=== PATIENT | male | born 1980 | race Asian ===

== ENCOUNTER 2020-08-04 16:08 | Emergency (ER) | payer OTHER ==
[2020-08-04 16:15] VITALS: BP 120/77; PULSE 71; TEMP 98.6; BMI 29.7
--- OUTSIDE RECORDS SUMMARY | 2020-08-04 16:31 | XMS ---
:1980 [facility] Providers Name Role Phone Favio Ocampo Unavailable [phone] Reva Stevens Unavailable [phone] Aramis Stevens Unavailable [phone] Aramis Stevens Unavailable [phone] REECE Unavailable Unavailable ZOEY Malcolm Unavailable Unavailable Smith, W Unavailable Unavailable Smith, W Unavailable Unavailable Smith, W Unavailable Unavailable Smith, W Unavailable Unavailable ZUNASSIGNED Unavailable Unavailable ELYSE Self Unavailable Unavailable ZUNASSIGNED@, Unavailable Unavailable Re-disclosure Warning The records that you are about to access may contain information from federally- assisted alcohol or drug abuse programs. If such information is present, then the following federally mandated warning applies: This information has been disclosed to you from records protected by federal confidentiality rules (42 CFR part 2). The federal rules prohibit you from making any further disclosure of this information unless further disclosure is expressly permitted by the written consent of the person to whom it pertains or as otherwise permitted by 42 CFR part 2. A general authorization for the release of medical or other information is NOT sufficient for this purpose. The Federal rules restrict any use of the information to criminally investigate or prosecute any alcohol or drug abuse patient.The records that you are about to access may contain highly sensitive health information, the redisclosure of which is protected by Article 27-F of the [facility] Public Health law. If you continue you may haveaccess to information: Regarding HIV / AIDS; Provided by facilities licensed or operated by the [facility] Office of Mental Health; or Provided by the [facility] Office for People With Developmental Disabilities. If such information is present, then the following [facility] mandated warning applies: This information has been disclosed to you from confidential records which are protected by state law. State law prohibits you from making any further disclosure of this information without the specific written consent of the person to whom it pertains, or as otherwise permitted by law. Any unauthorized further disclosure in violation of state law may result in a fine or retirement sentence or both. A general authorization for the release of medical or other information is NOT sufficient authorization for further disclosure. Allergies and Adverse Reactions Type Description Substance Reaction Status Data Source(s ) Propensity to Propensity to Propensity to NEXTG EN ([facility] adverse reactions adverse reactions adverse reactions [facility] Medical (disorder) (disorder) (disorder) Center) Encounters Encounter Providers Location Date Indications Data Source(s ) Outpatient Attender: 08/19/2020 [facility] 10:15:00 AM Medic [facility] r: EDT ZUNASSIGNEDReferre r: [id number] ZUNASSIGNED@, Outpatient Admitter: [id number] 08/19/2020 [facility] ZUNASSIGNED@,Refer 12:00:00 AM [facility] rer: [id number] EDT ZUNASSIGNED@, Outpatient 07/24/2020 [facility] 11:58:00 [facility] EDT Outpatient Attender: 07/24/2020 [facility] ZEIGNEDAdmitte 09:04:00 AM [facility] r: EDT ZUNASSIGNEDReferre r: [id number] ZUNASSIGNED@, Outpatient Attender: Levon Dotson 07/24/2020 [facility] MoserAdmitter: 09:02:00 AM Medical C enter Levon EDT Sydneeeferrer: Lveon Mtz Attender: Favio 07/24/2020 [facility] ( [facility] 09:02:00 AM [facility] EDT - Center) 07/24/2020 09:02:00 AM EDT Outpatient Admitter: [id number] 07/24/2020 [facility] ZUNASSIGNED@,Refer 12:00:00 AM Medic [facility] rer: [id number] EDT ZUNASSIGNED@, Outpatient Admitter: CUCO Dotson 09/16/2019 [facility] Brandan teresa Malcolm 01:57:00 PM Medical Ce nter EST Outpatient Attender: CUCO Dotson 09/16/2019 [facility] [place] 11:19:00 AM Medical Cent er ESTHERdmitter: CUCO [place] 09/16/2019 Jamesrer: CUCO 01:27:00 PM ZOEY Malcolm EST Attender: Favio [facility] 11:19:00 AM May[facility] EST - Center) 09/16/2019 11:19:00 AM EST Outpatient Attender: MEGHANN Dotson 09/06/2019 [facility] LIZYdmitter: 08:39:00 AM Medical Center MEGHANN FONSECALReferrer: MEGHANN REECE Outpatient Attender: REVA Dotson 07/17/2019 [facility] ELYSE 01:40:00 PM Medical Cent er REVA Sanchezmitter: EDT REVA ARDON MReferrer: MEGHANN REECE OutpatientOFFICE/O Attender: [facility] 07/17/2019 [facility] ([facility] VISIT, Elyse 01:40:00 PM [facility] EDT - [place]) 07/17/2019 01:40:00 PM EDT Insurance Providers Payer name Policy type Policy ID Covered Covered libertarian's Policy P mauri / Coverage libertarian ID relationship to Smith Inf ormation type smith MVP/HHP O [id number] 01 [id number] MVP/HHP [id number] self [id number] MVP ESSENTIAL [id number] SP [id number] PLAN 3 4 [place] [id number] [place] [id number] HMO MVP/HHP O [id number] 01 [id number] 100 Problems, Conditions, and Diagnoses Code Display Name Description Problem Type Effective Dates Data Source(s) R06.02 Shortness of SHORTNESS OF Diagnosis 07/24/2020 [facility] breath BREATH 09:02:00 AM EDT Medical C enter K64.4 Residual RESIDUAL Diagnosis 09/16/2019 [facility] hemorrhoidal skin HEMORRHOIDAL SKIN 11:19:00 AM [facility] tags TAGS M54.5 Low back pain LOW BACK PAIN Diagnosis 09/06/2019 [facility] 08:39:00 AM EST Medical C enter K64.9 Unspecified UNSPECIFIED Diagnosis 07/17/2019 [facility] hemorrhoids HEMORRHOIDS 01:40:00 PM EDT Medical Center Surgeries/Procedures Procedure Description Date Indications Data Source(s) OFFICE/OUTPATIENT 07/17/2019 [facility] (Ed rena [facility] VISIT, NEW 12:00:00 AM EDT - Medical Ce nter) 07/17/2019 12:00:00 AM EDT Social History Code Duration Value Status Description Data Source(s ) Smoking Unknown if ever completed Unknown if ever Pingtashi Mckays smoked smoked Medical Center Vital Signs ID Date Data Source UNK Name Value Range Interpretation Code Description Data Source(s) Oxygen saturation 98 % 98 % [facility] ([facility] in Arterial blood [facility] by Pulse oximetry Center) Body mass index 27.17 kg/m2 Overweight 27.17 kg/m2 [facility] ([facility] (BMI) [Ratio] [facility] Respiratory rate 12 /min 12 /min [facility] ([facility]) Body temperature 36.72 Sheila 36.72 Sheila [facility] ([facility]) Heart rate 68 /min 68 /min [facility] ([facility]) Diastolic blood 64 mm[Hg] 64 mm[Hg] [facility] ( [facility] pressure [facility]) Systolic blood 128 mm[Hg] 128 mm[Hg] [facility] ([facility] pressure [facility]) Body weight 90.000 kg 90.000 kg [facility] ([facility]) Body height 182.00 cm 182.00 cm [facility] ([facility])
[2020-08-04] MEDS ORDERED: DIPHTH,PERTUSS(ACELL),TET 0.5 ML DISP.SYRIN IM ONE ×2 (16:48→17:07)
--- NOTE | 2020-08-04 16:49 | PDOC ---
History of Present Illness - General Chief Complaint: Laceration Stated Complaint: RIGHT INDEX FINGER/INJURY Time Seen by Provider: 08/04/20 16:36 - History of Present Illness Initial Comments: 08/04/20 16:45 40-year-old male unsure of his last tetanus vaccination presents for evaluation of a laceration on his right index finger after using a knife at work Past History - Medical History Allergies/Adverse Reactions: Allergies Allergy/AdvReac Type Severity Reaction Status Date / Time No Known Allergies Allergy Verified 08/04/20 16:11 Home Medications: Ambulatory Orders Oxycodone HCl/Acetaminophen [Percocet 5-325 mg Tablet] 1 tab PO Q6H PRN #24 tablet MDD 12 10/12/19 COPD: No - Immunization History Immunization Up to Date: No - Psycho-Social/Smoking History Smoking History: Never smoked - Substance Abuse Hx (Audit-C & DAST Scrn) How often the patient has a drink containing alcohol: Never Score: In Men: 4 or > Positive; In Women: 3 or > Positive: 0 Screen Result (Pos requires Nsg. Audit-10AR): Negative In the last yr the pt used illegal drug/Rx for NonMed reason: No Score: Yes response is considered Positive: 0 Screen Result (Positive result requires Nsg. DAST-10): Negative Review of Systems - Review of Systems Integumentary: Yes: See HPI *Physical Exam - Vital Signs Last Vital Signs Temp Pulse Resp BP Pulse Ox 98.6 F 71 20 120/77 100 08/04/20 16:12 08/04/20 16:12 08/04/20 16:12 08/04/20 16:12 08/04/20 16:12 - Physical Exam 08/04/20 16:45 There is a superficial approximately 1 cm laceration on the ulnar aspect of the right index finger on the skin overlying the DIPJ FDS and FDP work independently without gross sensorimotor deficits neurovascular intact Medical Decision Making - Medical Decision Making 08/04/20 16:46 Tetanus updated a single Steri-Strip was applied. Wound was copiously washed with soap and water prior to Steri-Strip application. Wound care instructions were given. I have reviewed the pathophysiology with the patient. They are in agreement with the treatment plan all questions were answered to their satisfaction. Understanding for follow-up without fail was also conveyed to the patient. Again they are in agreement. Discharge - Discharge Information Problems reviewed: Yes Clinical Impression/Diagnosis: Finger laceration Condition: Stable Disposition: HOME - Admission No - Follow up/Referral Referrals: Raven Fernandez MD [Primary Care Provider] - Sean Ramsay MD [Staff Physician] - - Patient Discharge Instructions Additional Instructions: Return to the emergency room for worsening symptoms and without fail follow-up with orthopedic hand surgery for wound check within the next 1 to 2 days. If you not if you cannot get an appointment with orthopedic surgery hand subspecialty you may return to the emergency room in 24 hours for a wound check sooner if problems develop. Please keep the area clean with soap and water and left open to air, if you are working you may cover the area with a dry sterile dressing such as a Band-Aid. - Post Discharge Activity
== END 2020-08-04 17:22 | disposition home or self-care (01) ==
LOC: JERFT 16:08
PROC: 3E0234Z Introduction of Serum, Toxoid and Vaccine into Muscle, Percutaneous Approach (ICD-10-PCS; principal; 2020-08-04)
DX: S61.210A Laceration without foreign body of right index finger without damage to nail, initial encounter (principal)
CPT/HCPCS: 90715; 99284-25

== ENCOUNTER 2020-10-05 12:24 | Emergency (ER) | payer OTHER ==
[2020-10-05 12:41] VITALS: BMI 29.2
[2020-10-05] MEDS ORDERED: SODIUM CHLORIDE 1,000 ML IV STA (13:41)
[2020-10-05] MEDS ORDERED: FAMOTIDINE 20 MG/50 ML IVPB 20 MG/50 ML MG IVPB ONE ×2 (13:41→13:46)
[2020-10-05] MEDS ORDERED: DICYCLOMINE HCL 20 MG/2 ML AMPUL IM ONE (13:41)
[2020-10-05] MEDS ORDERED: METOCLOPRAMIDE HCL INJECTION 10 MG/2 ML VIAL IVPB ONE (13:41)
[2020-10-05] MEDS ORDERED: ACETAMINOPHEN 1000 MG/100 ML VIAL (NON FORMULARY) IVPB ONE (13:42)
[2020-10-05] MEDS ORDERED: METOCLOPRAMIDE HCL INJECTION 10 MG/2 ML VIAL ONE (13:46)
[2020-10-05] MEDS ORDERED: ACETAMINOPHEN INJECTION 100 ML IVPB ONE (13:47)
[2020-10-05 14:27] LABS: EOS % 1.6 % (0-4.5); HEMOGLOBIN 15.6 GM/dL (11.7-16.9); LYMPH % 29.5 % (8-40); MCH 27.9 pg (25.7-33.7); MCHC 32.6 g/dl (32.0-35.9); MEAN CELL VOLUME 85.7 fl (80-96); MEAN PLT VOLUME 8.5 fl (7.5-11.1); MONO % 10.2 % (3.8-10.2); NEUT % 57.7 % (42.8-82.8); PLATELET COUNT 222 K/MM3 (134-434); RBC 5.59 M/mm3 (4.00-5.60); RDW 13.7 % (11.9-15.9); WHITE BLOOD COUNT 6.1 K/mm3 (4.0-10.0)
[2020-10-05 14:51] LABS: POTASSIUM 4.4 mmol/L (3.5-5.1)
[2020-10-05 14:56] LABS: ALBUMIN 4.4 g/dl (3.4-5.0); CALCIUM 9.4 mg/dL (8.5-10.1)
[2020-10-05 14:57] LABS: BLOOD UREA NITROGEN 15.4 mg/dL (7-18)
[2020-10-05 14:59] LABS: CREATININE 1.1 mg/dL (0.55-1.3)
[2020-10-05 15:01] LABS: BILIRUBIN,TOTAL 0.4 mg/dL (0.2-1); TOT PROT 7.6 g/dl (6.4-8.2)
[2020-10-05 16:01] VITALS: BP 114/56; PULSE 60; TEMP 97.7
== END 2020-10-05 16:00 | disposition home or self-care (01) ==
LOC: JER 12:24
PROC: 3E033NZ Introduction of Analgesics, Hypnotics, Sedatives into Peripheral Vein, Percutaneous Approach (ICD-10-PCS; principal; 2020-10-05)
PROC: 3E033GC Introduction of Other Therapeutic Substance into Peripheral Vein, Percutaneous Approach (ICD-10-PCS; 2020-10-05)
PROC: 3E0337Z Introduction of Electrolytic and Water Balance Substance into Peripheral Vein, Percutaneous Approach (ICD-10-PCS; 2020-10-05)
DX: R10.13 Epigastric pain (principal); K29.00 Acute gastritis without bleeding; G44.209 Tension-type headache, unspecified, not intractable
CPT/HCPCS: 36415; 80053; 83690; 85025; 99285-25; J0131

== ENCOUNTER 2020-12-20 10:18 | Emergency (ER) | payer OTHER ==
[2020-12-20 10:30] VITALS: BP 148/95; PULSE 63; TEMP 98.1; BMI 34.3
== END 2020-12-20 11:11 | disposition home or self-care (01) ==
LOC: JER 10:18
DX: M79.10 Myalgia, unspecified site (principal); Z11.52 Encounter for screening for COVID-19
CPT/HCPCS: 99283-25; C9803; U0003

== ENCOUNTER 2020-12-24 09:58 | Emergency (ER) | payer OTHER ==
[2020-12-24 10:27] VITALS: BP 117/63; PULSE 85; TEMP 98.1; BMI 29.1
[2020-12-24] MEDS ORDERED: KETOROLAC TROMETHAMINE 30 MG/1 ML VIAL IM ONE (12:09)
[2020-12-24] MEDS ORDERED: KETOROLAC TROMETHAMINE 30 MG/1 ML VIAL ONE (12:18)
== END 2020-12-24 12:46 | disposition home or self-care (01) ==
LOC: JER 09:58
PROC: 3E0233Z Introduction of Anti-inflammatory into Muscle, Percutaneous Approach (ICD-10-PCS; principal; 2020-12-24)
DX: R05 Cough (principal); R52 Pain, unspecified; R68.83 Chills (without fever)
CPT/HCPCS: 71046-TC-FY; 99284-25

== ENCOUNTER 2021-08-18 17:20 | Emergency (ER) | payer OTHER ==
[2021-08-18 17:47] VITALS: BP 105/56; PULSE 73; TEMP 98; BMI 24.3
[2021-08-18] MEDS ORDERED: METHOCARBAMOL 500 MG TABLET PO ONE (18:41)
[2021-08-18] MEDS ORDERED: LIDOCAINE 5% TOPICAL PATCH TP ONE (18:41)
[2021-08-18] MEDS ORDERED: KETOROLAC TROMETHAMINE 30 MG/1 ML VIAL IM ONE (18:41)
[2021-08-18] MEDS ORDERED: METHOCARBAMOL 500 MG TABLET ONE (18:54)
[2021-08-18] MEDS ORDERED: LIDOCAINE 5% TOPICAL PATCH ONE (18:54)
[2021-08-18] MEDS ORDERED: KETOROLAC TROMETHAMINE 30 MG/1 ML VIAL ONE (18:55)
[2021-08-18] MEDS ORDERED: LIDOCAINE PATCH REMOVAL MC SCH (22:00)
== END 2021-08-18 20:50 | disposition home or self-care (01) ==
LOC: JERFT 17:20 → JER 17:20 → JERFT 20:50
PROC: 3E0233Z Introduction of Anti-inflammatory into Muscle, Percutaneous Approach (ICD-10-PCS; principal; 2021-08-18)
DX: S39.012A Strain of muscle, fascia and tendon of lower back, initial encounter (principal); X50.0XXA Overexertion from strenuous movement or load, initial encounter
CPT/HCPCS: 72100-TC-FY; 99284-25

== ENCOUNTER 2022-03-10 18:22 | Emergency (ER) | payer OTHER ==
[2022-03-10 18:28] VITALS: BP 151/66; PULSE 73; TEMP 98; BMI 28.7
[2022-03-10] MEDS ORDERED: KETOROLAC TROMETHAMINE 30 MG/1 ML VIAL IM ONE (18:55)
[2022-03-10] MEDS ORDERED: KETOROLAC TROMETHAMINE 30 MG/1 ML VIAL ONE (19:45)
== END 2022-03-10 20:19 | disposition home or self-care (01) ==
LOC: JERFT 18:22
PROC: 3E0234Z Introduction of Serum, Toxoid and Vaccine into Muscle, Percutaneous Approach (ICD-10-PCS; principal; 2022-03-10)
DX: S20.212A Contusion of left front wall of thorax, initial encounter (principal); W22.8XXA Striking against or struck by other objects, initial encounter
CPT/HCPCS: 71046-TC-FY; 71101-TC-LT-FY; 99284-25

== ENCOUNTER 2023-04-15 20:41 | Emergency (ER) | payer OTHER ==
[2023-04-15 20:46] VITALS: BP 105/70; PULSE 72; RESP 18; TEMP 98.1; BMI 29.2
[2023-04-15] MEDS ORDERED: KETOROLAC TROMETHAMINE 30 MG/1 ML VIAL IM ONE (21:06)
[2023-04-15] MEDS ORDERED: KETOROLAC TROMETHAMINE 30 MG/1 ML VIAL ONE (21:14)
[2023-04-15] MEDS ORDERED: LIDOCAINE 5% TOPICAL PATCH ONE ×2 (21:55→21:56)
[2023-04-15] MEDS ORDERED: LIDOCAINE 5% TOPICAL PATCH TP ONE (21:55)
[2023-04-15] MEDS ORDERED: CYCLOBENZAPRINE HCL 10 MG TABLET (FP) PO ONE (21:55)
[2023-04-15] MEDS ORDERED: CYCLOBENZAPRINE HCL 10 MG TABLET (FP) ONE (21:55)
[2023-04-15] MEDS ORDERED: LIDOCAINE PATCH REMOVAL MC SCH (22:00)
== END 2023-04-15 22:23 | disposition home or self-care (01) ==
LOC: JERFT 20:41 → JER 20:41 → JERFT 22:23
PROC: 3E0233Z Introduction of Anti-inflammatory into Muscle, Percutaneous Approach (ICD-10-PCS; principal; 2023-04-15)
DX: S60.222A Contusion of left hand, initial encounter (principal); M54.50 Low back pain, unspecified; S69.92XA Unspecified injury of left wrist, hand and finger(s), initial encounter; W11.XXXA Fall on and from ladder, initial encounter; W22.8XXA Striking against or struck by other objects, initial encounter; Y99.0 Civilian activity done for income or pay
CPT/HCPCS: 72100-TC-FY; 73110-TC-LT-FY; 73130-TC-LT-FY; 99284-25

== ENCOUNTER 2024-06-09 09:53 | Emergency (ER) | payer OTHER ==
[2024-06-09 10:05] VITALS: BMI 29.2
[2024-06-09] MEDS ORDERED: diphenhydrAMINE HCL 25 MG CAPSULE (FP) PO ONE (10:32)
[2024-06-09] MEDS ORDERED: EPINEPHrine/PF 1 MG/1 ML (1:1,000) AMPULE ONE (10:32)
[2024-06-09] MEDS ORDERED: FAMOTIDINE 20 MG TABLET ONE (10:32)
[2024-06-09] MEDS ORDERED: DEXAMETHASONE SOD PHOSPHATE 10 MG/1 ML VIAL ONE (10:32)
[2024-06-09] MEDS: FAMOTIDINE 20 MG TABLET PO ONE (10:37)
[2024-06-09] MEDS: diphenhydrAMINE HCL 25 MG CAPSULE (FP) PO ONE (10:37)
[2024-06-09] MEDS: DEXAMETHASONE SOD PHOSPHATE 10 MG/1 ML VIAL IM ONE (10:40)
[2024-06-09] MEDS: EPINEPHrine/PF 1 MG/1 ML (1:1,000) AMPULE IM ONE (10:40)
[2024-06-09 12:46] VITALS: BP 106/59; PULSE 68; RESP 18; TEMP 98.4
== END 2024-06-09 13:49 | disposition home or self-care (01) ==
LOC: JERFT 09:53 → JER 09:53
PROC: 3E023GC Introduction of Other Therapeutic Substance into Muscle, Percutaneous Approach (ICD-10-PCS; principal; 2024-06-09)
PROC: 3E023GC Introduction of Other Therapeutic Substance into Muscle, Percutaneous Approach (ICD-10-PCS; 2024-06-09)
DX: T63.441A Toxic effect of venom of bees, accidental (unintentional), initial encounter (principal); L29.9 Pruritus, unspecified; R21 Rash and other nonspecific skin eruption; N48.29 Other inflammatory disorders of penis; L50.0 Allergic urticaria
CPT/HCPCS: 99284-25; J1100